=== PATIENT | female | born 1940 | race Caucasian/White ===

== ENCOUNTER → 2017-12-23 | Outpatient (CLI) | payer BC, OTHER ==
[~2017-12-23] VITALS: Ht 152.4 cm; Wt 52.2 kg
[~2017-12-23] MED LIST: COLCHICINE0.6 MG PO
--- NOTE | ~2017-12-23 | HPC ---
[facility] [address] [address] PAIN MANAGEMENT CONSULTATION Name: BRENDEN DIANE Room #: REG [facility].#: [id number] Admission: 12/23/17 Attend Phys: Bennett Martinez MD Discharge: Date of : 40 Report #: [id number] THIS REPORT FOR: //name// CC: Jack Martinez DATE OF SERVICE: 12/23/2017 CHIEF COMPLAINT: Low back pain with some mild radiation into the hips. The patient is a beka 77-year-old seen here today at the request of Dr. Otero. She described a continuous pain that can momentarily and transiently be more severe in her low back. Pain is equal right and left. She describes it as an aching, sharp, tender, throbbing sensation and the intensity can be as high as a 10/10, average daily intensity is a 7-8/10. She has known spinal pathology with an L4-L5 anterolisthesis and a left lateral subluxation at that level. This causes her difficulty with standing upright and when she tries to stand up straight or walk straight her pain is much more severe. Referral pattern refers into the buttock cheeks and it is directly overlying the ischial tuberosity particularly on the right. We described this jointly as her "sit bone." She constantly changes position in her chair. She has had a few treatments and tends to push herself through her pain. She is optimistic and positive by nature and says that she has been in general good health and has been grateful for that fortunate. She has listed only some gastritis and arthritis as her problems, although acknowledges a history of a bleeding ulcer, which make us to be cautious with nonsteroidal anti-inflammatory drugs. MEDICATIONS: Review of medications include colchicine only. Dr. Otero entertained the possibility of gout. He was unable to perform an arthrocentesis from the knee since there was no fluid. She has complained of knee pain more over the course of the last year as well as the pain in her ischium. She has also complained in her foot. We raised the possibility that this was a radicular component from hip through knee and into the ankle today and I described radicular pain for her. Dr. Otero had also considered the possibility of an epidural. He mentioned in his note intrathecal pump. We discussed it only briefly today. PHYSICAL EXAMINATION: GENERAL: This is a very bright outgoing 77-year-old. VITAL SIGNS: Her blood pressure is 142/89, heart rate 72, respirations 14 and O2 sat 97. I asked her to move from sitting to standing position and ambulate. Although [address] [address] PAIN MANAGEMENT CONSULTATION Name: BRENDEN DIANE Janessa Room #: REG [facility] Christina.#: [id number] Admission: 12/23/17 Attend Phys: Bennett Martinez MD Discharge: Date of : 40 Report #: [id number] she is able to straighten up and walk for a short time, it is obvious that she is forcing herself into this position and this is not her natural walking position. When she is in her most comfortable ambulation position, she is bent forward at the waist and slightly rotated from her curvature and scoliosis. CHEST: Clear to auscultation. CARDIAC: Rhythm is regular. MUSCULOSKELETAL: Examination of the spine reveals rotational scoliosis and tenderness across the lumbosacral segment. Bilateral straight leg raising discomfort is noted particularly on the right through the hip into the knee and down into the ankle. Sensation is intact. No focal weakness is noted. I looked at her MRI scan from [facility] where it shows an L4-L5, grade 1 anterolisthesis and left lateral subluxation of L4 on L5. The result is a mild to moderate spinal stenosis and bilateral neural foraminal stenosis. IMPRESSION: Chronic degenerative spine disease with radiculopathy, particularly right L4-L5. RECOMMENDATIONS: I think an epidural injection is a good place to provide an injection treatment. She might be a candidate for some medication, but we will be cautious. She is by nature not a pain pill taker. Brace might be of some use if she is on her feet for some time. Plan is to follow up for the injection on Wednesday morning. We will seek preauthorization with her insurance company. By: [id number] Bennett Martinez MD /nt
[2017-12-23 10:22] VITALS: BP 142/89
== END ==
LOC: PAIN 06:17
DX: M47.896 Other spondylosis, lumbar region (principal); G89.29 Other chronic pain

== ENCOUNTER → 2017-12-27 | Outpatient (CLI) | payer BC, OTHER ==
[~2017-12-27] VITALS: Ht 152.4 cm; Wt 52.2 kg
--- NOTE | ~2017-12-27 | HPC ---
[facility] [place] [address] PAIN MANAGEMENT CONSULTATION Name: BRENDEN DIANE Room #: REG [facility].#: [id number] Admission: 12/27/17 Attend Phys: Bennett Martinez MD Discharge: Date of : 40 Report #: [id number] THIS REPORT FOR: //name// CC: Jack Martinez DATE OF SERVICE: 12/27/2017 Followup visit for lumbar scoliosis, lumbar stenosis and chronic low back pain with radiculopathy. The patient was seen in the clinic for an extended consultation last . 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 We reviewed our discussion of . I explained the procedure, risks and benefits and she is anxious to proceed. IMPRESSION: Chronic low back pain with radiculopathy. PROCEDURE: Right paramedian L4-L5 epidural injection under fluoroscopic guidance. She was taken to the fluoroscopic suite, placed prone and skin prepped with ChloraPrep. Skin anesthetized over the L4-L5 interspace. A 20-gauge Tuohy epidural needle advanced into the epidural space with loss of resistance technique. There was no blood or CSF aspirated. 1 mL of Omnipaque was injected. Good spread of dye observed into the epidural space, was followed by 3 mL of 0.5% lidocaine mixed with 30 mg of triamcinolone. ( a reduction chosen with much discussion due to her sensitivity to corticosteroids with flushing and side effects. She tolerated the injection and the procedure well and was observed for 45 minutes and discharged. Followup visit scheduled in the pain clinic on an as needed basis. <ELECTRONICALLY SIGNED> By: Bennett Martinez MD 12/29/17 1618 [id number] 0016 Bennett Martinez MD /nt
[2017-12-27 10:33] VITALS: BP 149/84
== END | disposition home or self-care (01) ==
LOC: PAIN 07:07
DX: M54.16 Radiculopathy, lumbar region (principal); G89.29 Other chronic pain; M41.86 Other forms of scoliosis, lumbar region; M48.061 Spinal stenosis, lumbar region without neurogenic claudication; Z88.8 Allergy status to other drugs, medicaments and biological substances

== ENCOUNTER → 2018-01-27 | Outpatient (CLI) | payer BC, OTHER ==
[~2018-01-27] VITALS: Ht 162.6 cm; Wt 51.3 kg
[~2018-01-27] MED LIST changes: +IBUPROFEN 200200 M1 PO; +VITAMIN B-12500 MCG PO; +VITAMIN D3400 UNIT PO; +VITAMINC500 PO
--- NOTE | ~2018-01-27 | HPC ---
[facility] [place] [address] PAIN MANAGEMENT CONSULTATION Name: BRENDEN DIANE Room #: REG [facility] Christina.#: [id number] Admission: 01/27/18 Attend Phys: Bennett Martinez MD Discharge: Date of : 40 Report #: [id number] THIS REPORT FOR: //name// CC: Jack Martinez DATE OF SERVICE: 01/27/2018 Followup visit for lumbar radiculopathy. The patient returns to pain clinic today after her epidural injection on 12/27/2017. She is extremely well. She had significant pain relief for nearly 3 weeks, but the pain is now returning and although it is not quite as bad as it was before it is a 7/10. Her low back pain radiates to her right groin into her front thigh. It is not surprising that she has pain and it is likely that epidural injections will provide symptomatic relief. Our hope would be that perhaps with 1-2 injections we may get many months of pain relief, that this could be provided for her intermittently going forward rather than relying on medications solely or more advanced surgical options. Spinal cord stimulator and intrathecal pump are certainly considerations, but carry with them risk of failure, are expensive and require significant surgical intervention. I do not think she is a candidate for any sort of neurosurgical decompressive approach at this time, although she does have some focal changes in L4-L5 and L5-S1. I think it is the anterolisthesis and left lateral subluxation on -5 that creates the greatest degree of her pain. Today, she was here mostly for discussion on what the next options would be. She does not want an injection today, but I would be happy to provide her with one before [place] so that she could have and enjoy the symptom relief that we can accord. I reviewed her injection with her, which was performed at the level of L4-L5 just to the right of midline. PHYSICAL EXAMINATION: She is a beka little 77-year-old, 5 feet, 115 pounds, 22.5 BMI. Her blood pressure 149/84, heart rate 86, respirations 14, pain intensity 7/10. She does not appear to be a fall risk. She walks with a slow but steady gait. She has pain with forward flexion and extension. She has difficulty with straightening. Straight leg raising is positive bilaterally particularly; however, on the right into the hip all the way to the knee and the ankle, although the intensity seems to be no worse, perhaps a bit better. IMPRESSION: Chronic low back pain with radiculopathy secondary to degenerative spine disease. L4-L5 anterolisthesis with left lateral subluxation of L4 on L5. Bilateral spinal stenosis and moderate central spinal stenosis. [address] [address] PAIN MANAGEMENT CONSULTATION Name: BRENDEN DIANE Room #: REG [facility] Tanvi#: [id number] Admission: 01/27/18 Attend Phys: Bennett Martinez MD Discharge: Date of : 40 Report #: [id number] RECOMMENDATIONS: Repeat epidural injection within the Medicare guidelines. By: [id number] Bennett Martinez MD /nt
[2018-01-27 14:07] VITALS: BP 166/83
== END ==
LOC: PAIN 09:17
DX: M47.26 Other spondylosis with radiculopathy, lumbar region (principal); M48.061 Spinal stenosis, lumbar region without neurogenic claudication; Z79.899 Other long term (current) drug therapy

== ENCOUNTER → 2018-01-31 | Outpatient (CLI) | payer BC, OTHER ==
[~2018-01-31] VITALS: Ht 152.4 cm; Wt 51.3 kg
--- NOTE | ~2018-01-31 | HPC ---
[facility] [place] [address] PAIN MANAGEMENT CONSULTATION Name: BRENDEN DIANE Room #: REG [facility] Christina.#: [id number] Admission: 01/31/18 Attend Phys: Bennett Martinez MD Discharge: Date of : 40 Report #: [id number] THIS REPORT FOR: //name// CC: Jack Martinez DATE OF SERVICE: 01/31/2018 Followup visit for lumbar radiculopathy. The patient returns to pain clinic today for an epidural injection. We discussed her care just 01/27/2018. She has decided she would like to get the injection to help her through the holiday season and also she has had a favorable response to her initial injection in December. We will see if she can have sustained improvement. There have been no changes in her history since our visit just a few days ago. IMPRESSION: 1. Lumbar radiculopathy with degenerative spine disease, L4-L5 anterolisthesis, left lateral subluxation of L4 on L5 2. Spinal stenosis. PROCEDURE: The patient was taken to fluoroscopic suite, placed prone, skin prepped with ChloraPrep. Skin anesthetized over L4-L5 and a 20-gauge Tuohy epidural needle advanced first attempt into the epidural space with loss of resistance technique. No blood or CSF was aspirated. A 1 mL of Omnipaque injected. Good spread of dye observed in the epidural space, followed by 3 mL of 0.5% lidocaine mixed with 80 mg of triamcinolone. She tolerated the procedure well and was observed for 45 minutes and discharged. Followup visit on an as needed basis. By: [id number] Bennett Martinez MD /nt
[2018-01-31 09:40] VITALS: BP 152/81
== END | disposition home or self-care (01) ==
LOC: PAIN 00:57
DX: M51.16 Intervertebral disc disorders with radiculopathy, lumbar region (principal); M43.16 Spondylolisthesis, lumbar region; M48.061 Spinal stenosis, lumbar region without neurogenic claudication; Z79.899 Other long term (current) drug therapy; Z88.8 Allergy status to other drugs, medicaments and biological substances